=== PATIENT | female | born 1985 | race Caucasian/White ===

== ENCOUNTER 2019-11-23 00:30 | Inpatient (IN) | payer BC ==
[~2019-11-23] VITALS: Ht 149.9 cm; Wt 76.7 kg
[2019-11-23] MEDS ORDERED: LACTATED RINGERS 1,000 ML IV SCH (00:59)
[2019-11-23] MEDS ORDERED: PREN-380 PO (01:04)
[2019-11-23] MEDS ORDERED: CLINDAMYCIN 900 MG in DEXTROSE 5% 100 ML IV SCH (01:05)
[2019-11-23 01:19] LABS: APPEARANCE,URINE SL CLOUDY (CLEAR); BILIRUBIN,URINE NEGATIVE (NEGATIVE); BLOOD, URINE TRACE-I (NEGATIVE); COLOR,URINE YELLOW (YELLOW); LEUKOCYTE ESTERASE ,URINE NEGATIVE (NEGATIVE); NITRITE, URINE NEGATIVE (NEGATIVE); UGLUCOSE NEGATIVE (NEGATIVE)
[2019-11-23 01:20] LABS: BASOPHILS # (AUTO) 0.1 K/uL (0.00-0.22); EOSINOPHILS # (AUTO) 0.1 K/uL (0-0.4); HEMOGLOBIN 13.7 g/dL (12.0-16.0); NEUTROPHILS # (AUTO) 7.9 K/uL (1.8-7.7)
[2019-11-23 01:24] LABS: BASOPHILS % (AUTO) 0.5 % (0.0-2.0); EOSINOPHILS % (AUTO) 0.8 % (0.0-4.0); HEMATOCRIT 40.9 % (36-48); LYMPHOCYTES # (AUTO) 2.2 K/uL (2.5-16.5); LYMPHOCYTES % (AUTO) 20.4 % (20.5-51.1); MEAN CORPUSCULAR HEMOGLOBIN 31 pg (27-31); MEAN CORPUSCULAR HGB CONC 34 g/dL (33-37); MEAN CORPUSCULAR VOLUME 93.4 fL (80-94); MONOCYTES # (AUTO) 0.7 K/uL (0.8-1.0); MONOCYTES % (AUTO) 6.7 % (1.7-9.3); NEUTROPHILS % (AUTO) 71.6 % (42.2-75.2); PLATELET COUNT (AUTO) 126 K/uL (140-450); RED BLOOD CELL COUNT(AUTO) 4.39 MIL/uL (4.20-5.40); RED CELL DISTRIBUTION WIDTH 14.5 % (11.6-13.7)
[2019-11-23 01:34] LABS: ALBUMIN 2.7 g/dL (3.4-5.0); ANION GAP 14.8 (8-16); CARBON DIOXIDE 21.9 mmol/L (21-32); CREATININE 0.9 mg/dL (0.6-1.3); POTASSIUM 3.7 mmol/L (3.5-5.1); TOTAL BILIRUBIN 0.4 mg/dL (0.0-1.0)
[2019-11-23 01:39] VITALS: BP 131/88
[2019-11-23] MEDS ORDERED: CLINDAMYCIN 900 MG/6 ML VIAL IV ONE (01:47)
[2019-11-23] MEDS ORDERED: ONDANSETRON 4 MG/2 ML VIAL ONE (01:50)
[2019-11-23] MEDS ORDERED: MIDAZOLAM 2 MG/2 ML VIAL ONE (01:59)
[2019-11-23] MEDS ORDERED: MORPHINE PRES FREE 10 MG/10 ML AMP IV ONE (02:00)
[2019-11-23] MEDS ORDERED: OXYTOCIN 20 UNITS in LACTATED RINGERS 1,000 ML IV SCH ×2 (02:38→03:45)
[2019-11-23] MEDS ORDERED: diphenhydrAMINE 50 MG/ML VIAL IVP PRN ×2 (02:40)
[2019-11-23] MEDS ORDERED: MEPERIDINE 25 MG/ML SYR IVP PRN (02:40)
[2019-11-23] MEDS ORDERED: NALBUPHINE 10 MG/ML AMP IVP PRN (02:40)
[2019-11-23] MEDS ORDERED: NALOXONE 0.4 MG/ML VIAL IVP PRN ×3 (02:40)
[2019-11-23] MEDS ORDERED: HYDROmorphone 1 MG/ML AMP IVP PRN (02:40)
[2019-11-23] MEDS ORDERED: ONDANSETRON 4 MG/2 ML VIAL IVP PRN ×2 (02:40)
[2019-11-23 02:59] LABS: WBC,URINE 0-5 /HPF (0-5)
[2019-11-23] MEDS ORDERED: OXYTOCIN 20 UNITS/LR PREMIX 1,000 ML IV ONE ×2 (03:24→21:12)
[2019-11-23] MEDS ORDERED: oxyCODONE/APAP 5/325 MG 1 TAB TAB PO PRN (03:45)
[2019-11-23] MEDS ORDERED: MEASLES, MUMPS, AND RUBELLA 1 VIAL SQVAC PRN (03:45)
[2019-11-23] MEDS ORDERED: METHYLERGONOVINE 0.2 MG/ML AMP IM PRN (03:45)
[2019-11-23] MEDS: KETOROLAC 30 MG/ML VIAL IM/IVP SCH ×2 (07:05→17:16)
--- NOTE | 2019-11-23 08:50 | NUR ---
PATIENT HAS BEEN SCREENED AND CATEGORIZED LOW NUTRITION RISK. PATIENT WILL BE SEEN WITHIN 7 DAYS OF ADMISSION. 11/29/[address]
[2019-11-24] MEDS: KETOROLAC 30 MG/ML VIAL IVP PRN ×2 (03:36→10:32)
[2019-11-24 06:40] LABS: BASOPHILS % (AUTO) 0.1 % (0.0-2.0); EOSINOPHILS # (AUTO) 0.3 K/uL (0-0.4); EOSINOPHILS % (AUTO) 1.7 % (0.0-4.0); HEMATOCRIT 38.6 % (36-48); HEMOGLOBIN 12.8 g/dL (12.0-16.0); LYMPHOCYTES # (AUTO) 2.2 K/uL (2.5-16.5); LYMPHOCYTES % (AUTO) 12.6 % (20.5-51.1); MEAN CORPUSCULAR HEMOGLOBIN 31 pg (27-31); MEAN CORPUSCULAR HGB CONC 33 g/dL (33-37); MEAN CORPUSCULAR VOLUME 94.3 fL (80-94); MONOCYTES # (AUTO) 1.1 K/uL (0.8-1.0); MONOCYTES % (AUTO) 6.3 % (1.7-9.3); NEUTROPHILS # (AUTO) 13.7 K/uL (1.8-7.7); NEUTROPHILS % (AUTO) 79.3 % (42.2-75.2); PLATELET COUNT (AUTO) 118 K/uL (140-450); RED BLOOD CELL COUNT(AUTO) 4.09 MIL/uL (4.20-5.40); RED CELL DISTRIBUTION WIDTH 14.7 % (11.6-13.7); WHITE BLOOD COUNT (AUTO) 17.3 K/uL (4.8-10.8)
[2019-11-24] MEDS: SIMETHICONE 80 MG TAB.CHEW PO PRN ×3 (09:54→17:24)
[2019-11-24] MEDS: IBUPROFEN 600 MG TAB PO PRN (17:24)
[2019-11-24] MEDS: BISACODYL 5 MG TABEC PO PRN (17:24)
[2019-11-24] MEDS: oxyCODONE/APAP 5/325 MG 1 TAB TAB PO PRN (19:55)
[2019-11-24 21:59] LABS: APPEARANCE,URINE CLOUDY (CLEAR); BILIRUBIN,URINE NEGATIVE (NEGATIVE); BLOOD, URINE 3+ (NEGATIVE); COLOR,URINE DARK YELLOW (YELLOW); LEUKOCYTE ESTERASE ,URINE 2+ (NEGATIVE); NITRITE, URINE NEGATIVE (NEGATIVE); UGLUCOSE NEGATIVE (NEGATIVE)
[2019-11-24 23:18] LABS: CALCIUM OXALATE CRYSTALS,UR None Seen /HPF (None Seen); HYALINE CASTS, URINE 0-10 /LPF (None Seen); RBC,URINE 20-50 /HPF (0-5)
[2019-11-25] MEDS: oxyCODONE/APAP 5/325 MG 1 TAB TAB PO PRN (02:01)
[2019-11-25] MEDS: IBUPROFEN 600 MG TAB PO PRN (03:08)
[2019-11-25] MEDS: SIMETHICONE 80 MG TAB.CHEW PO PRN (08:46)
[2019-11-25] MEDS: BISACODYL 5 MG TABEC PO PRN (09:13)
[2019-11-25] MEDS ORDERED: BISACODYL 10 MG SUPP RC SCH (09:40)
== END 2019-11-25 13:05 | disposition home or self-care (01) | DRG 788 ==
LOC: MLD 00:30 → MFCC 03:48
PROVIDERS: ADMIT Obstetrics & Gynecology; ATTEND Obstetrics & Gynecology
PROC: 3E0234Z Introduction of Serum, Toxoid and Vaccine into Muscle, Percutaneous Approach (ICD-10-PCS; 2019-11-23)
PROC: 10D00Z1 Extraction of Products of Conception, Low, Open Approach (ICD-10-PCS; principal; 2019-11-23 02:00)
DX: O32.1XX0 Maternal care for breech presentation, not applicable or unspecified (principal); Z3A.39 39 weeks gestation of pregnancy; Z37.0 Single live birth; O77.0 Labor and delivery complicated by meconium in amniotic fluid; Z23 Encounter for immunization
CPT/HCPCS: 36415; 80053; 81001; 85025; 86592; 86886; 86900; 86901; 87086; J1885; J2250; J2270; J2405; J2590; J3490; J7120